=== PATIENT | male | born 1950 | race Caucasian/White ===

== ENCOUNTER 2022-01-16 09:22 | Inpatient (IN) | payer MEDICAID ==
[~2022-01-16] VITALS: Ht 180.3 cm; Wt 89.8 kg
[2022-01-16 10:12] LABS: BASOPHILS % 0.5 % (0.0-2.0); EOSINOPHILS % 0.7 % (0.0-5.0); HEMATOCRIT. 42.5 % (42.0-52.0); HEMOGLOBIN. 14.5 g/dL (14.0-18.0); LYMPHOCYTES % 23.5 % (20.0-50.0); MEAN CORPUSCULAR HEMOGLOBIN 30.2 pg (28.0-32.0); MEAN CORPUSCULAR VOLUME 88.6 fL (80.0-94.0); MEAN PLATELET VOLUME 8.7 fl (7.4-10.4); MONOCYTES % 8.4 % (2.0-8.0); NEUTROPHILS % 66.9 % (40.0-76.0); PLATELET 212 x1000/uL (130-400); RED CELL DISTRIBUTION WIDTH 15.1 % (11.6-14.6)
[2022-01-16 10:20] LABS: CHLORIDE 107 mEq/L (98-107)
[2022-01-16 10:36] LABS: PROTHROMBIN TIME 11.2 sec (9.6-11.0)
[2022-01-16] MEDS ORDERED: CLONIDINE 0.1MG TABLET PO PRN (10:45)
[2022-01-16] MEDS ORDERED: IPRATROPIUM/ALBUTEROL 0.5-3(2.5)MG/3ML NEB HHN PRN (10:45)
[2022-01-16] MEDS ORDERED: DOCUSATE SODIUM 100MG CAPSULE PO PRN (10:45)
[2022-01-16] MEDS ORDERED: DIPHENHYDRAMINE 50MG/ML VIAL IV PRN (10:45)
[2022-01-16] MEDS ORDERED: MAGNESIUM/ALUMINUM HYDROXIDE/SIMETHICONE 30ML UDC PO PRN (10:45)
[2022-01-16] MEDS ORDERED: GUAIFENESIN 200MG/10ML SUGAR FREE UDC PO PRN (10:45)
[2022-01-16] MEDS ORDERED: ACETAMINOPHEN 325MG TABLET PO PRN ×2 (10:45)
[2022-01-16] MEDS ORDERED: ENOXAPARIN 40MG/0.4ML SYR SUBCUT SCH (10:45)
[2022-01-16] MEDS: ENOXAPARIN 40MG/0.4ML SYR SUBCUT SCH (11:08)
[2022-01-16 12:30] VITALS: BP 136/82
[2022-01-16 12:35] VITALS: BP 128/81
[2022-01-16] MEDS ORDERED: PREG150C PO (14:25)
[2022-01-16] MEDS ORDERED: ASPI-986 MT (14:25)
[2022-01-16] MEDS ORDERED: IBUP-1653 PO (14:25)
[2022-01-16] MEDS ORDERED: SENN-257 PO (14:25)
[2022-01-16] MEDS ORDERED: BISO5TAB13 MT (14:25)
[2022-01-16] MEDS ORDERED: VITA1CAP PO (14:27)
[2022-01-16] MEDS ORDERED: TAMS-11 PO (14:27)
[2022-01-16] MEDS ORDERED: AMLO1TAB12 PO (14:27)
[2022-01-16] MEDS ORDERED: IBUPROFEN 200MG TABLET PO PRN (15:45)
[2022-01-16 16:00] VITALS: BP 137/72
[2022-01-16] MEDS: PREGABALIN 75MG CAPSULE PO SCH (16:59)
[2022-01-16] MEDS: ASPIRIN 325MG TABLET PO SCH (16:59)
[2022-01-16] MEDS: METOPROLOL TARTRATE 50MG TABLET PO SCH ×2 (17:02→21:08)
[2022-01-16 19:31] LABS: CREATINE KINASE MB FRACTION 1.6 ng/mL (0.5-3.6); PHOSPHORUS 3.4 mg/dL (2.5-4.9)
[2022-01-16 20:18] LABS: CARCINO EMBRYONIC ANTIGEN 2.5 ng/ml; PROSTRATE SPECIFIC AG TOTAL 0.59 ng/mL (0.0-4.0)
[2022-01-16 20:26] VITALS: BP 144/83
[2022-01-16 20:58] LABS: VITAMIN B12 SERUM 502 pg/mL (211-911)
[2022-01-16] MEDS ORDERED: METOPROLOL TARTRATE 50MG TABLET PO SCH (21:00)
[2022-01-16 21:08] LABS: CREATINE KINASE MB FRACTION 1.5 ng/mL (0.5-3.6)
[2022-01-16] MEDS: SENNOSIDES 8.6MG TABLET PO SCH (21:08)
[2022-01-17 00:25] VITALS: BP 120/64
[2022-01-17 04:00] VITALS: BP 138/86
[2022-01-17 06:43] LABS: BASOPHILS % 0.7 % (0.0-2.0); EOSINOPHILS % 1.7 % (0.0-5.0); HEMATOCRIT. 39.3 % (42.0-52.0); HEMOGLOBIN. 13.6 g/dL (14.0-18.0); LYMPHOCYTES % 32.9 % (20.0-50.0); MEAN CORPUSCULAR HEMOGLOBIN 30.3 pg (28.0-32.0); MEAN CORPUSCULAR VOLUME 87.9 fL (80.0-94.0); MEAN PLATELET VOLUME 8.6 fl (7.4-10.4); MONOCYTES % 11.2 % (2.0-8.0); NEUTROPHILS % 53.5 % (40.0-76.0); PLATELET 193 x1000/uL (130-400); RED BLOOD CELL COUNT 4.48 mill/uL (4.7-6.1); RED CELL DISTRIBUTION WIDTH 14.8 % (11.6-14.6)
[2022-01-17 07:34] LABS: CHLORIDE 106 mEq/L (98-107)
[2022-01-17 08:00] VITALS: BP 158/90
[2022-01-17 08:28] LABS: HDL CHOLESTEROL 45 mg/dL (40-59); LDL CHOLESTEROL 166 mg/dL (5-100); T4 FREE 0.98 ng/dL (0.76-1.46)
[2022-01-17] MEDS ORDERED: BISOPROLOL FUMARATE MT SCH (09:00)
[2022-01-17] MEDS: PREGABALIN 75MG CAPSULE PO SCH ×3 (09:38→17:58)
[2022-01-17] MEDS: AMLODIPINE 5MG TABLET PO SCH (09:39)
[2022-01-17] MEDS: LOSARTAN POTASSIUM 100 MG TABLET PO SCH (09:40)
[2022-01-17] MEDS: METOPROLOL TARTRATE 50MG TABLET PO SCH ×2 (09:41→21:27)
[2022-01-17] MEDS: TAMSULOSIN HCL 0.4MG SR CAPSULE PO SCH (09:41)
[2022-01-17] MEDS: ASPIRIN 325MG TABLET PO SCH (09:41)
[2022-01-17 12:00] VITALS: BP 119/77
[2022-01-17] MEDS: ENOXAPARIN 40MG/0.4ML SYR SUBCUT SCH (12:00)
[2022-01-17] MEDS ORDERED: DIPHENHYDRAMINE 25MG CAPSULE PO SCH (13:00)
[2022-01-17] MEDS ORDERED: METHYLPREDNISOLONE SOD SUCC 125 MG/2 ML VIAL IV SCH (14:00)
[2022-01-17] MEDS: FAMOTIDINE 20MG TABLET PO SCH ×2 (14:22→21:27)
[2022-01-17 16:00] VITALS: BP 106/61
[2022-01-17 20:00] VITALS: BP 135/84
[2022-01-17] MEDS ORDERED: PREDNISONE 20MG TABLET PO SCH (20:00)
[2022-01-17] MEDS ORDERED: ATORVASTATIN CALCIUM 20MG TABLET PO SCH (21:00)
[2022-01-17] MEDS: SENNOSIDES 8.6MG TABLET PO SCH (21:30)
[2022-01-18] VITALS: BP 136/85
[2022-01-18] MEDS ORDERED: PREDNISONE 20MG TABLET PO SCH ×2 (02:00→08:00)
[2022-01-18 04:00] VITALS: BP 143/87
[2022-01-18 06:14] LABS: BASOPHILS % 0.1 % (0.0-2.0); HEMATOCRIT. 41.8 % (42.0-52.0); HEMOGLOBIN. 14.1 g/dL (14.0-18.0); LYMPHOCYTES % 15.2 % (20.0-50.0); MEAN CORPUSCULAR HEMOGLOBIN 29.8 pg (28.0-32.0); MEAN CORPUSCULAR VOLUME 88.1 fL (80.0-94.0); MEAN PLATELET VOLUME 9.2 fl (7.4-10.4); MONOCYTES % 2.3 % (2.0-8.0); NEUTROPHILS % 82.4 % (40.0-76.0); PLATELET 225 x1000/uL (130-400); RED BLOOD CELL COUNT 4.75 mill/uL (4.7-6.1); RED CELL DISTRIBUTION WIDTH 14.7 % (11.6-14.6)
[2022-01-18 06:24] LABS: CHLORIDE 108 mEq/L (98-107)
[2022-01-18 08:00] VITALS: BP 157/89
[2022-01-18] MEDS ORDERED: DIPHENHYDRAMINE 50MG CAPSULE PO NR (08:00)
[2022-01-18] MEDS: LOSARTAN POTASSIUM 100 MG TABLET PO SCH (08:13)
[2022-01-18] MEDS: METOPROLOL TARTRATE 50MG TABLET PO SCH (08:13)
[2022-01-18] MEDS: AMLODIPINE 5MG TABLET PO SCH (08:14)
[2022-01-18] MEDS ORDERED: METOPROLOL TARTRATE 5MG/5ML VIAL IV NR (09:00)
[2022-01-18] MEDS: FAMOTIDINE 20MG TABLET PO SCH (09:00)
[2022-01-18] MEDS: TAMSULOSIN HCL 0.4MG SR CAPSULE PO SCH (09:00)
[2022-01-18] MEDS: PREGABALIN 75MG CAPSULE PO SCH (09:00)
[2022-01-18] MEDS: ASPIRIN 325MG TABLET PO SCH (09:00)
[2022-01-18] MEDS ORDERED: NITROGLYCERIN SPRAY/4.9GM CAN TL ONE (10:00)
[2022-01-18] MEDS ORDERED: IOHEXOL-350 100 ML BOTTLE ONE (10:20)
[2022-01-18 12:00] VITALS: BP 135/78
[2022-01-18] MEDS: ENOXAPARIN 40MG/0.4ML SYR SUBCUT SCH (12:00)
[2022-01-18] MEDS ORDERED: SIMV-43 MT (12:55)
[2022-01-18] MEDS ORDERED: LANC-934 TP (12:55)
[2022-01-18] MEDS ORDERED: METF-414 PO (12:56)
[2022-01-18 13:20] VITALS: BP 141/82
[2022-01-18] MEDS ORDERED: ATORVASTATIN CALCIUM 40MG TABLET PO SCH (21:00)
== END 2022-01-18 13:50 | disposition home or self-care (01) | DRG 190 ==
LOC: ER 09:22 → 7WST 11:36 → EDBEDREQTM 11:39 → EDBEDREQ 11:39 → ENRESERV 11:45
PROVIDERS: ADMIT Internal Medicine; ATTEND Internal Medicine
DX: I21.4 Non-ST elevation (NSTEMI) myocardial infarction (principal); E46 Unspecified protein-calorie malnutrition; E78.5 Hyperlipidemia, unspecified; G57.92 Unspecified mononeuropathy of left lower limb; I25.10 Atherosclerotic heart disease of native coronary artery without angina pectoris; G89.29 Other chronic pain; I10 Essential (primary) hypertension; R73.9 Hyperglycemia, unspecified; Z68.27 Body mass index [BMI] 27.0-27.9, adult; Z88.0 Allergy status to penicillin; Z85.528 Personal history of other malignant neoplasm of kidney; Z79.899 Other long term (current) drug therapy; Z87.891 Personal history of nicotine dependence; Z90.5 Acquired absence of kidney
CPT/HCPCS: 36415; 71045; 71250; 72110; 72148; 74181; 75571; 80048; 80053; 80061; 82378; 82550; 82553; 82607; 82652; 82746; 83036; 83540; 83550; 83735; 83880; 84100; 84153; 84439; 84443; 84481; 84484; 85025; 85379; 86301; 93005; 93306; 93880; 93970; 97161; 97165; 99285; J1650; J2930; J3490; J7512; Q0163; Q9967; G0103